=== PATIENT | female | born 1985 | race Caucasian/White ===

== ENCOUNTER → 2020-07-22 | Outpatient (CLI) | payer BC, OTHER ==
[2020-07-22 15:44] LABS: BASO % 1 % (0-3); EOS # 0.1 x10^3/uL (0.0-0.7); EOS % 1 % (0-3); HEMATOCRIT 36.5 % (36.0-47.0); HEMOGLOBIN 12.4 g/dL (12.0-15.5); LYMPH # 1.9 x10^3/uL (1.0-4.8); LYMPH % 20 % (24-48); MEAN CORPUSCULAR HEMOGLOBIN 31 pg (25-35); MEAN CORPUSCULAR HGB CONC 34 g/dL (31-37); MEAN CORPUSCULAR VOLUME 91 fL (79-100); MONO # 0.5 x10^3/uL (0.0-1.1); MONO % 5 % (0-9); NEUT # 6.9 x10^3uL (1.8-7.7); NEUT % 74 % (31-73); PLATELET COUNT 266 x10^3/uL (140-400); RED BLOOD COUNT 4.01 x10^6/uL (3.50-5.40); RED CELL DISTRIBUTION WIDTH 12.8 % (11.5-14.5); WHITE BLOOD COUNT 9.4 x10^3/uL (4.0-11.0)
[2020-07-23 14:40] LABS: FREE T4 1.02 ng/dL (0.76-1.46); THYROID STIM HORMONE (TSH) 1.018 uIU/mL (0.358-3.740)
[2020-07-24 19:11] LABS: RUBELLA IGG ANTIBODY <0.90 index (Immune >0.99)
== END ==
LOC: LAB 14:57
PROVIDERS: ATTEND Obstetrics & Gynecology
DX: Z34.91 Encounter for supervision of normal pregnancy, unspecified, first trimester (principal)
CPT/HCPCS: 36415; 81220; 84439; 84443; 85025; 85660; 86592; 86703; 86762; 86787; 86803; 86850; 86900; 86901; 87340

== ENCOUNTER → 2020-07-28 | Outpatient (CLI) | payer BC, OTHER ==
--- NOTE | 2020-07-29 13:49 | RAD ---
EXAMINATION: US OB 14+ WKS, 07/28/2020 1:59 PM CLINICAL INDICATION: Unsure of dates and first trimester TECHNIQUE: Grayscale, color and spectral Doppler, and M mode ultrasound images of the pelvis via cochran sabdominal and transvaginal approach per first trimester OB protocol. COMPARISON: None. FINDINGS: The uterus measures 10.7 x 6.7 x 9.3 cm. There is an intrauterine gestational sac containing an loren o with crown-rump length of 2.6 cm, consistent with gestational age 9 weeks 3 days. A yolk sac is pre sent. There is cardiac activity with heart rate of 169 bpm. The cervix measures 3.9 cm. The left ovary measures 2.3 x 2.1 x 2.6 cm. The right ovary measures 4.3 x 1.8 x 1.9 cm. No adnexal m ass or free fluid. IMPRESSION: Single living intrauterine patency with gestational age 9 weeks 3 days based on crown-rum p length. Electronically signed by: Ellie Chapman MD (07/29/2020 1:46 PM) [id number]
== END ==
LOC: US 13:54
PROVIDERS: ATTEND Obstetrics & Gynecology
DX: Z32.01 Encounter for pregnancy test, result positive (principal); Z3A.09 9 weeks gestation of pregnancy
CPT/HCPCS: 76801

== ENCOUNTER → 2020-10-13 | Outpatient (CLI) | payer BC, OTHER ==
--- NOTE | 2020-10-13 17:16 | RAD ---
EXAM: OB ULTRASOUND, > 14 WEEKS HISTORY: anatomy survey. COMPARISON: 07/28/2020 TECHNIQUE: Multiple grayscale images, color Doppler, and M-mode images of the uterus are obtained. FINDINGS: There is a single intrauterine gestation in variable presentation. The placenta is anterior in locati on without evidence of placenta previa. The amount of amniotic fluid appears appropriate. Amniotic f luid index is 14.2 cm. Cervical length is 4.5 cm. Biometrical data: BPD = 4.9 cm for 20 weeks 5 days. HC = 18.4 cm for 20 weeks 5 days. AC = 16.9 cm for 21 weeks 6 days. FL = 3.4 cm for 20 weeks 3 days. HC/AC ratio = 1.1. Overall, the estimated sonographic gestational age is 21 weeks and 0 days for an estimated date of de livery of 02/23/2021. The estimated date of delivery provided by the last menstrual period is 02/27/2021 . Estimated weight is 405 grams. A 4 chamber heart is identified with positive cardiac activity. The estimated heart rate is 144 beats per minute. Bilateral upper and lower extremities are identified. There is a three-vessel cord with cord insertion visualized. stomach and urinary bladder are identified. Both kidneys are seen. The spine and brain are unremarkable. The facial profile is not well seen due to presentation. The maternal adnexal regions are unremarkable. IMPRESSION: 1. Single intrauterine fetus in variable presentation with normal heart rate and gestational age kasandra ent also measurements of 21 weeks and 0 days. The estimated gestational age based on LMP is 20 weeks and 3 days. 2. Suboptimal evaluation of the facial profile due to presentation. The remainder of the anatomy survey is unremarkable. Electronically signed by: Antonia García MD (10/13/2020 5:14 PM) [id number]
== END ==
LOC: US 10:48
PROVIDERS: ATTEND Obstetrics & Gynecology
DX: Z34.92 Encounter for supervision of normal pregnancy, unspecified, second trimester (principal); Z3A.21 21 weeks gestation of pregnancy
CPT/HCPCS: 76805

== ENCOUNTER → 2020-10-31 | Outpatient (CLI) | payer BC, OTHER ==
--- NOTE | 2020-10-31 17:37 | RAD ---
EXAM: Obstetrics sonogram. HISTORY: Incomplete anatomy survey. Facial profile is not assessed. TECHNIQUE: Sonographic imaging of a gravid uterus was performed. COMPARISON: 10/13/2020. FINDINGS: There is a single uterine fetus in breech presentation with a normal heart rate of 145 bpm. There is body motion. The amniotic fluid index is normal at 14.9 cm. There is an anterior plac enta without evidence of placenta previa. The cervix is closed and measures 3.4 cm in length. The fet al facial profile is unremarkable. The remainder the anatomy is not formally assessed on this e xam. IMPRESSION: 1. Single intrauterine fetus in breech presentation with a normal heart rate and gestational age base d on LMP of 23 weeks and 0 days. 2. Unremarkable facial profile. The remainder the anatomy survey was completed on the jeny dy performed 10/13/2020. Electronically signed by: Antonia García MD (10/31/2020 5:34 PM) [facility]
== END ==
LOC: US 10:37
PROVIDERS: ATTEND Obstetrics & Gynecology
DX: Z34.92 Encounter for supervision of normal pregnancy, unspecified, second trimester (principal); Z3A.23 23 weeks gestation of pregnancy
CPT/HCPCS: 76815

== ENCOUNTER → 2020-11-11 | Outpatient (CLI) | payer BC, OTHER ==
[2020-11-11 15:08] LABS: BASO % 0 % (0-3); EOS # 0.1 x10^3/uL (0.0-0.7); EOS % 1 % (0-3); HEMATOCRIT 34.6 % (36.0-47.0); HEMOGLOBIN 11.7 g/dL (12.0-15.5); LYMPH # 1.7 x10^3/uL (1.0-4.8); LYMPH % 18 % (24-48); MEAN CORPUSCULAR HEMOGLOBIN 33 pg (25-35); MEAN CORPUSCULAR HGB CONC 34 g/dL (31-37); MEAN CORPUSCULAR VOLUME 97 fL (79-100); MONO # 0.4 x10^3/uL (0.0-1.1); MONO % 4 % (0-9); NEUT # 7.4 x10^3uL (1.8-7.7); NEUT % 77 % (31-73); PLATELET COUNT 272 x10^3/uL (140-400); RED BLOOD COUNT 3.58 x10^6/uL (3.50-5.40); RED CELL DISTRIBUTION WIDTH 13.2 % (11.5-14.5); WHITE BLOOD COUNT 9.6 x10^3/uL (4.0-11.0)
== END ==
LOC: LAB 13:21
PROVIDERS: ATTEND Obstetrics & Gynecology
DX: Z34.92 Encounter for supervision of normal pregnancy, unspecified, second trimester (principal); Z3A.00 Weeks of gestation of pregnancy not specified
CPT/HCPCS: 36415; 82950; 85025

== ENCOUNTER → 2020-12-24 | Outpatient (CLI) | payer BC, OTHER ==
[2020-12-26 14:08] LABS: PARVO IGM 0.2 index (0.0-0.8)
== END ==
LOC: LAB 14:43
PROVIDERS: ATTEND Obstetrics & Gynecology
DX: B34.3 Parvovirus infection, unspecified (principal)
CPT/HCPCS: 36415; 86747